=== PATIENT | male | born 1945 | race Hispanic/Latino ===

== ENCOUNTER 2021-03-25 08:04 | Day surgery (SDC) | payer OTHER ==
[2021-03-19 12:15] LABS: BASOPHILS % (AUTO) 0.6 % (0.0-5.0); EOSINOPHILS % (AUTO) 3.7 % (0.0-8.0); HEMATOCRIT 36.3 % (42-54); LYMPHOCYTES % (AUTO) 25.7 % (21.0-51.0); MEAN CORPUSCULAR HEMOGLOBIN 32.4 pg (27.0-33.0); MEAN CORPUSCULAR HGB CONC 33.9 g/dL (32.0-36.0); MEAN CORPUSCULAR VOLUME 95.5 fL (79-99); NEUTROPHILS % (AUTO) 61.7 % (40.0-77.0); PLATELET COUNT (AUTO) 206 K/uL (130-400)
[2021-03-19 12:29] LABS: APPEARANCE,URINE Clear (CLEAR); BILIRUBIN,URINE Negative (NEGATIVE); COLOR,URINE Yellow (YELLOW); GLUCOSE, URINE (UA) Negative (NEGATIVE); KETONES,URINE Negative (NEGATIVE); LEUKOCYTE ESTERASE ,URINE Negative (NEGATIVE); NITRATE,URINE Negative (NEGATIVE); OCCULT BLOOD,URINE Negative (NEGATIVE); PROTEIN,URINE Negative (NEGATIVE); UROBILINOGEN,URINE 0.2 mg/dL (0.2-1.0)
[2021-03-19 12:29] LABS: INR 1.02 (0.85-1.15); PROTHROMBIN TIME 11.1 SEC (9.6-11.6)
[2021-03-19 12:30] LABS: PARTIAL THROMBOPLASTIN TIME 28.7 SEC (26.3-35.5)
[2021-03-19 12:40] LABS: CREATININE 1.6 mg/dL (0.5-1.5); POTASSIUM 4.2 mmol/L (3.5-5.1)
[2021-03-22 12:48] VITALS: BP 145/65
[~2021-03-25] VITALS: Ht 167.6 cm; Wt 64.2 kg
[2021-03-25] VITALS (19 sets, daily range): BP systolic 139–173; BP diastolic 68–85
[2021-03-25] MEDS: CEFTRIAXONE SODIUM 1 GM IVP SCH ×2 (06:00→11:45)
[2021-03-25] MEDS: GENTAMICIN 80 MG/NS 100 ML PB 100 ML IV SCH ×2 (06:00→10:45)
[~2021-03-25 08:04] MED LIST: ATOR10TA69 PO; CARB-38 PO; GABA-529 PO; IBUP-2077 PO; LEVO25CA4 PO; LISI20TA24 PO; METF-446 PO; ROPI0.5T7 PO; TAMS-1 PO; [UNRECOGNIZED DRUG - OTHER] PO; levaquin PO
[2021-03-25] MEDS ORDERED: SODIUM CHLORIDE 0.9% 1000ML 1,000 ML IV ONE (08:25)
[2021-03-25] MEDS ORDERED: DEXAMETHASONE SOD PHOSPHATE 10MG/ML 1ML VIAL ONE (10:41)
[2021-03-25] MEDS ORDERED: MIDAZOLAM HCL 1 MG/ML 2ML VIAL ONE (10:41)
[2021-03-25] MEDS ORDERED: NEOSTIGMINE 5MG/5ML SYR IV ONE (10:42)
[2021-03-25] MEDS ORDERED: GLYCOPYRROLATE 1 MG/5 ML SYRINGE ONE (10:42)
[2021-03-25] MEDS ORDERED: ROCURONIUM 10MG/1ML SYR 10 MG/ML ML ONE (10:42)
[2021-03-25] MEDS ORDERED: PROPOFOL 10 MG/ML 20ML VIAL IV ONE (10:42)
[2021-03-25] MEDS ORDERED: FENTANYL CITRATE PF 50 MCG/1 ML 2ML VIAL ONE (10:42)
[2021-03-25] MEDS ORDERED: ONDANSETRON HCL 4 MG/2 ML VIAL ONE (10:42)
== END 2021-03-25 15:30 | disposition home or self-care (01) ==
LOC: DAH 08:04
PROVIDERS: ATTEND Urology
DX: N40.1 Benign prostatic hyperplasia with lower urinary tract symptoms (principal); R35.1 Nocturia; I10 Essential (primary) hypertension; E11.9 Type 2 diabetes mellitus without complications; Z79.01 Long term (current) use of anticoagulants; Z79.82 Long term (current) use of aspirin; Z79.899 Other long term (current) drug therapy; Z20.828 Contact with and (suspected) exposure to other viral communicable diseases
CPT/HCPCS: 36415; 52648; 71045; 80048; 81003; 82948 ×2; 85025; 85610; 85730; 87077; 87088; 87186; 93005; A4215; A4221; A4222; A4223; A4335; A4354; A4358 ×2; A4600; A4663; A6260; C1758; C9803; J0696; J1100; J1580; J2250; J2405; J2704; J2710; J3010; J3490; J7030 ×2; U0003